=== PATIENT | male | born 1970 ===

== ENCOUNTER 2025-06-06 11:37 | Outpatient (AMB) | payer OTHER, MEDICAID, SELFPAY ==
--- NOTE | 2025-06-06 11:45 | MHC.OFFVIS ---
Intake Visit Reasons: 6m SZ Allergies Opioids - Morphine Analogues Allergy (Unknown, Verified 06/04/25 09:49) Unknown oxycodone Allergy (Unknown, Verified 06/04/25 09:49) Unknown Medication List - Last Reconciled 06/06/25 by Sara Cordova MD aspirin-dipyridamole 25-200 mg 1 cap PO BEDTIME atorvastatin 40 mg PO DAILY ofxfqqmda-fwdanqpl-jjiiycq ala 50-200-25 mg (Biktarvy) 1 tab PO DAILY clopidogrel 75 mg PO DAILY darunavir-cobicistat 800-150 mg-mg (Prezcobix) 1 tab PO DAILY ezetimibe 10 mg PO DAILY furosemide 20 mg PO DAILY levetiracetam 1,000 mg PO BID metoprolol succinate ER 12.5 mg PO DAILY sacubitril-valsartan 24-26 mg (Entresto) 1 tab PO BID valacyclovir 500 mg PO BID zolpidem 10 mg PO BEDTIME PRN HPI Comments Details: 54 yo RH man with HIV disease and coronary artery disease status post triple bypass surgery and complex partial seizure disorder. (He was initially seen at [facility] in May of 2024. He came to hospital with an episode of dizziness and confusion and was noted to have mild left-sided facial flatness. At that time my impression was that he might have suffered from a seizure and the facial flatness was probably related to one of the brain lesions. Apparently he had another episode of passing out and went to [facility] and now was here for followup. He said that he was at work when he bent down to fix a switch and then something happened and he found himself on a chair.) He had a seizure two days ago. He had not missed any dose. Episode was similar to the previous one. COUNTS INCLUDE 234 BEDS AT [facility] Medical History (Updated 06/06/25 @ 11:49 by Sara Cordova MD) Vertebral artery stenosis Ulnar neuropathy Paresthesia of skin Seizure disorder Cerebral microvascular disease Assessment & Plan Assessment & Plan (1) Seizure disorder: Comment: Amb EEG at [facility] in Aug 2024: L temp sharps EEG at [facility] in Jun 2024: WNL MRI brain WO at [facility] in Jun 2024: No change from previous scan MRI brain WO at [facility] in May 2024: Mild scattered small ischemic type lesions in WM CTA brain and neck at [facility] in May 2024: Mild to mod left verteb stenosis. Code(s): G40.909 - Epilepsy, unspecified, not intractable, without status epilepticus Category: Medical (2) Cerebral microvascular disease: Code(s): I67.89 - Other cerebrovascular disease Category: Medical (3) Vertebral artery stenosis: Code(s): I65.09 - Occlusion and stenosis of unspecified vertebral artery Category: Medical Qualifiers: Laterality: left Qualified Code(s): I65.02 - Occlusion and stenosis of left vertebral artery Plan Impression: 1. Complex partial seizure disorder 2. Left vertebral artery stenosis 3. Cerebral microvascular disease Recommendations: 1. Increase levetiracetam 2000 mg twice a day 2. Continue baby aspirin daily. 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 Plavix has been stopped. 3. State of [place] driving restrictions for 6 m after a seizure were discussed Medications: New levetiracetam 1,000 mg PO BID 180 tabs 0RF Coding Level of Care Code Est Pt Level 4 (47351) Diagnoses Seizure disorder G40.909 Cerebral microvascular disease I67.89 Stenosis of left vertebral artery I65.02 Laterality: left
== END 2025-06-06 12:13 | disposition home or self-care (01) ==
LOC: HO.HSM 11:38
PROVIDERS: PCP Internal Medicine; Visit Provider Psychiatry & Neurology Neurology
DX: G40.909 Epilepsy, unspecified, not intractable, without status epilepticus (principal); I67.89 Other cerebrovascular disease; I65.02 Occlusion and stenosis of left vertebral artery
CPT/HCPCS: 99214